=== PATIENT | female | born 1980 | race Caucasian/White ===

== ENCOUNTER 2017-01-20 18:02 | Emergency (ER) | payer OTHER ==
[2017-01-20] MEDS ORDERED: ONDANSETRON 4 MG/2ML 2 ML VIAL ONE (20:36)
[2017-01-20] MEDS ORDERED: SODIUM CHLORIDE 0.9% 1,000 ML ONE (20:36)
--- NOTE | 2017-01-20 21:50 | CT ---
Name: CARISA BARAJAS Exam: CT head without contrast Comparison: None Clinical history: Recent trauma. Headache and vomiting. Technique: Helical CT was performed through the head. Angled axial reconstructions were obtained. Sagittal and coronal reconstructions were obtained as well. No contrast was given. An automated dose reduction technique was used to minimize patient radiation dose. Findings: There is no shift of the midline structures. Ventricles are of normal size and configuration. There is no mass, mass effect or hemorrhage. Cisterns are uneffaced. Posterior fossa is unremarkable. Visualized paranasal sinuses and mastoid air cells are normal. There is no fracture. Impression: No acute intracranial process Note: The above report was uploaded to [facility]'s electronic medical records system at 2146 hours.
[2017-01-20] MEDS ORDERED: HYDROMORPHONE HCL 1 MG/ML SYRINGE ONE (22:23)
[2017-01-20] MEDS ORDERED: PROMETHAZINE HCL 25 MG TABLET ONE (23:01)
== END 2017-01-20 23:27 | disposition home or self-care (01) ==
LOC: ED 18:02
DX: G43.909 Migraine, unspecified, not intractable, without status migrainosus (principal); M79.7 Fibromyalgia; Z79.899 Other long term (current) drug therapy; Z88.8 Allergy status to other drugs, medicaments and biological substances
CPT/HCPCS: 70450; 96375; 99283 ×2; 96374; 96361 ×2; J1170; A9270; J2405; J7030